=== PATIENT | female | born 1950 | race Caucasian/White ===

== ENCOUNTER → 2017-03-12 | Day surgery (SDC) | payer MEDICARE ==
[~2017-03-12] MED LIST: ALBUTEROL SULFATE 2.5 MG/3 ML NEBU. NEB ONE; ASPI-612 PO; ASPI-630 PO; ASPI1TAB58 PO; ATEN25TA PO; CALC200T3 PO; CALC667C6 PO; CHLO4TAB20 PO; EPINEPHrine 1 MG/ML VIAL IRR PRN; ESMOLOL 100 MG/10 ML VIAL. IV ONE; ESTR1TAB15 PO; FEXO180T16 PO; FLUT9.9S NS; GLYCOPYRROLATE 1 MG/5 ML VIAL. ONE; HYDROmorphone 2 MG/ML VIAL IV PRN; IBUP-1027 PO; IBUP100T8 PO; IV RINGERS,LACTATED 1000ML 1,000 ML IV SCH; LIDOCAINE 1% PF 2 ML VIAL. ID PRN; MEDR2.5T28 PO; MORPHINE SULFATE 2 MG/ML DISP.SYRIN. IV PRN; OMEP40CA5 PO; ONDANSETRON PF 4 MG/2 ML VIAL. IV PRN; PROCHLORPERAZINE 10 MG/2 ML VIAL. IV PRN; PROPOFOL 20 ML IV ONE; SUMA50TA4 PO; TRIA10.8 NS; [UNRECOGNIZED DRUG - CODE] PO; fentaNYL PF VIAL 100 MCG/2 ML VIAL IV PRN; phenylephrine
[2017-03-12 10:14] LABS: BASO # 0.1 x10^3/uL (0.0-0.2); BASO % 1 % (0-3); EOS % 1 % (0-3); HEMATOCRIT 43.4 % (36.0-47.0); HEMOGLOBIN 14.2 g/dL (12.0-15.5); LYMPH # 1.6 x10^3/uL (1.0-4.8); LYMPH % 18 % (24-48); MEAN CORPUSCULAR HEMOGLOBIN 31 pg (25-35); MEAN CORPUSCULAR HGB CONC 33 g/dL (31-37); MEAN CORPUSCULAR VOLUME 94 fL (79-100); MONO % 12 % (0-9); NEUT % 67 % (31-73); PLATELET COUNT 287 x10^3/uL (140-400)
[2017-03-12 10:24] LABS: INR 0.9 (0.8-1.1)
--- NOTE | 2017-03-12 11:47 | OP ---
DATE OF SURGERY: BRONCHOSCOPY NOTE INDICATION: Abnormal CT chest with interstitial infiltrates and persistent cough and weight loss, rule out Mycobacterium avium infection. Informed consent was obtained from the patient. She had a prior bronchoscopy as well. She agreed to proceed with bronchoscopy. All risks and benefits were explained. Propofol was used for sedation by anesthesia. Bronch was introduced through the right nostril. Upper airway was passed. There were moderate amount of thin secretions seen in the upper airway. Vocal cords were reached. They move equally with respiration. The trachea was entered. Some cheese white secretions seen in the distal trachea and also in the right upper lobe. Secretions were removed and bronchoalveolar lavage performed from the right upper lobe. No endobronchial lesion seen. The right middle lobe and right lower lobe was patent and no significant secretions seen. Mucosa appeared normal. Bronch was introduced into the left lung. All the subsegments of left upper lobe, lingula and left lower lobe were visualized. No endobronchial lesion seen. Mucosa appeared normal. There were some minimal secretions seen at the opening of the left lower lobe and also lingula. Bronchoalveolar lavage performed from the left lower lobe. IMPRESSION: 1. Minimal cheese white secretions seen in the distal trachea and the right upper lobe and also minimally in the left lingula and the opening of the left lower lobe. 2. Bronchoalveolar lavage performed from the right upper lobe and also from the left lower lobe. 3. No endobronchial lesion seen. 4. Mucosa appeared normal. 5. Follow the results of the bronchoscopy cultures. The patient tolerated the procedure well. JOY JOVEL MD DR: LANCE/veronica JOB#: [id number] / [id number]
[2017-03-12 11:49] VITALS: BP 131/65
--- NOTE | 2017-03-13 14:27 | PATHOLOGY ---
CYTOPATHOLOGY REPORT CLINICAL HISTORY: Persistent cough SPECIMEN(S) RECEIVED: A.Bronchoalveolar lavage, Right upper lobe B.Bronchoalveolar lavage, Left lower lobe FINAL DIAGNOSIS: A. Right upper lobe bronchoalveolar lavage, ThinPrep: - No malignant cells identified. - Bronchial epithelial cells, pulmonary macrophages, and predominantly acute inflammatory cells identified. B. Left lower lobe bronchoalveolar lavage, ThinPrep: - Non-diagnostic specimen. - Paucicellular specimen containing a few bronchial epithelial cells and inflammatory cells. (JPM:mgr; 03/13/2017) PATHOLOGIST: Leo Coyne M.D. REPORT ELECTRONICALLY SIGNED BY: Leo Coyne M.D. DATE/TIME: 03/13/2017 14:26 GROSS PATHOLOGY: A. Bronchoalveolar lavage, Right upper lobe: The specimen is submitted unfixed, labeled "Luis M Meza". Received by the Cytology Department is five mL of cloudy colorless fluid. One ThinPrep slide was prepared. B. Bronchoalveolar lavage, Left lower lobe: The specimen is submitted unfixed, labeled "MezaLuis M pappas A". Received by the Cytology Department is two mL of clear fluid. One ThinPrep slide was prepared. ([id number]) RADIOLOGY DIRECTOR(S): JUVENTINO Petty(ASCP), [facility] INITIAL CPT CODE(S): A; 10687 B; 66649 Professional services [place] [address] Technical services performed by [facility] at [address] [place] [address], [place] [address]. PATIENT: LUIS M MEZA /AGE: 4 1950 (Age: 66) SEX: F PATIENT #: [id number] ALT CASE #: SPECIMEN COLLECTION DATE: 03/12/2017 SPECIMEN RECEIVED DATE: 03/12/[address] [facility] [address] [place] [address], [address] [place] [address] PHONE: [phone] DIRECTOR: Tevin Ann M.D. * * * END OF REPORT * * *
== END | disposition home or self-care (01) ==
LOC: SURG 09:45
PROVIDERS: ATTEND Internal Medicine Critical Care Medicine
DX: J98.4 Other disorders of lung (principal); H40.9 Unspecified glaucoma; J45.909 Unspecified asthma, uncomplicated; Z90.49 Acquired absence of other specified parts of digestive tract; K21.9 Gastro-esophageal reflux disease without esophagitis; N39.0 Urinary tract infection, site not specified; M19.90 Unspecified osteoarthritis, unspecified site; F41.9 Anxiety disorder, unspecified; Z88.2 Allergy status to sulfonamides; Z91.02 Food additives allergy status; D69.6 Thrombocytopenia, unspecified
CPT/HCPCS: 31624; 36415; 85025; 85610; 87070; 87102; 87116; 87205; 88112; 94640; J2704; J3490; J7613; 31622

== ENCOUNTER → 2017-04-10 | Outpatient (CLI) | payer MEDICARE ==
[2017-04-10] MEDS: OXYMETAZOLINE 0.05% NASAL SPRAY 30ML BOTTLE. NS (22:30)
== END | disposition home or self-care (01) ==
LOC: SLPLAB 18:32
DX: G47.10 Hypersomnia, unspecified (principal)
CPT/HCPCS: 95810

== ENCOUNTER → 2017-04-29 | Outpatient (CLI) | payer MEDICARE ==
[2017-04-29] MEDS: ZOLPIDEM 5 MG TABLET. PO (21:15)
== END | disposition home or self-care (01) ==
LOC: RT 18:36
DX: G47.33 Obstructive sleep apnea (adult) (pediatric) (principal)
CPT/HCPCS: 95811

== ENCOUNTER 2017-05-20 09:40 | Inpatient (IN) | payer MEDICARE ==
[2017-05-20 10:56] LABS: HEMATOCRIT 40.7 % (36.0-47.0); HEMOGLOBIN 13.3 g/dL (12.0-15.5); MEAN CORPUSCULAR HEMOGLOBIN 30 pg (25-35); MEAN CORPUSCULAR HGB CONC 33 g/dL (31-37); MEAN CORPUSCULAR VOLUME 92 fL (79-100); PLATELET COUNT 277 x10^3/uL (140-400); RED BLOOD COUNT 4.43 x10^6/uL (3.50-5.40); RED CELL DISTRIBUTION WIDTH 14.2 % (11.5-14.5); WHITE BLOOD COUNT 7.7 x10^3/uL (4.0-11.0)
[2017-05-20 11:03] LABS: ANION GAP 6 (6-14); BLOOD UREA NITROGEN 20 mg/dL (7-20); CALCIUM 8.9 mg/dL (8.5-10.1); CARBON DIOXIDE 31 mmol/L (21-32); CHLORIDE 104 mmol/L (98-107); CREATININE 0.7 mg/dL (0.6-1.0); GFR 83.2; GLUCOSE 100 mg/dL (70-99); POTASSIUM 4.4 mmol/L (3.5-5.1); SODIUM 141 mmol/L (136-145)
[2017-05-20 11:05] LABS: PARTIAL THROMBOPLASTIN TIME 29 SEC (24-38); PROTHROMBIN TIME PATIENT 12.7 SEC (11.7-14.0)
[2017-05-20 11:15] LABS: TROPONINI < 0.017 ng/mL (0.000-0.055)
[2017-05-20 11:18] LABS: CKMB INDEX 1.3 % (0-4); CKMB MASS 1.6 ng/mL (0.0-3.6); CREATINE KINASE 123 U/L (26-192)
[2017-05-20] MEDS ORDERED: IV NORMAL SALINE 50ML 50 ML IV (12:45)
[2017-05-20] MEDS: ALTEPLASE 6 MG IV (12:57)
[2017-05-20] MEDS: ALTEPLASE IV (12:58)
[2017-05-20] MEDS ORDERED: ONDANSETRON PF 4 MG/2 ML VIAL. IV ×2 (13:00→13:15)
[2017-05-20] MEDS ORDERED: LABETALOL 20 MG/4 ML DISP.SYRIN. IV (13:00)
[2017-05-20] MEDS ORDERED: ACETAMINOPHEN 325 MG SUPP.RECT. PR (13:00)
[2017-05-20] MEDS ORDERED: CONTRAST GIVEN MC (13:15)
[2017-05-20] MEDS: IOHEXOL 300 MG/ML 100ML VIAL. IV (14:27)
[2017-05-20] MEDS ORDERED: CALCIUM CARBONATE 500 MG TAB.CHEW PO (17:00)
[2017-05-20] MEDS ORDERED: SODIUM CHL/ALOE VERA NASAL GEL 14.1GM TUBE. NS (17:15)
[2017-05-20 17:45] LABS: TROPONINI < 0.017 ng/mL (0.000-0.055)
[2017-05-20] MEDS: FLUTICASONE 50MCG/NASAL SPRAY 16GM BOTTLE. NS (18:40)
[2017-05-20] MEDS: ACETAMINOPHEN 325 MG TABLET. PO (18:40)
[2017-05-20] MEDS: METOPROLOL TART IMMED RELEASE 25 MG TABLET. PO (20:39)
[2017-05-20] MEDS: ATORVASTATIN CALCIUM 10 MG TABLET. PO (20:39)
[2017-05-21 00:15] LABS: MRSA BY PCR Negative (Negative)
[2017-05-21] MEDS: ACETAMINOPHEN 325 MG TABLET. PO ×2 (00:22→09:48)
[2017-05-21 01:30] LABS: ADD MAN DIFF? NO
[2017-05-21 01:37] LABS: BASO # 0.1 x10^3/uL (0.0-0.2); BASO % 1 % (0-3); EOS % 1 % (0-3); HEMATOCRIT 38.3 % (36.0-47.0); HEMOGLOBIN 12.8 g/dL (12.0-15.5); LYMPH # 1.6 x10^3/uL (1.0-4.8); LYMPH % 19 % (24-48); MEAN CORPUSCULAR HEMOGLOBIN 31 pg (25-35); MEAN CORPUSCULAR HGB CONC 34 g/dL (31-37); MEAN CORPUSCULAR VOLUME 92 fL (79-100); MONO # 0.8 x10^3/uL (0.0-1.1); MONO % 9 % (0-9); NEUT % 70 % (31-73); PLATELET COUNT 272 x10^3/uL (140-400); RED BLOOD COUNT 4.15 x10^6/uL (3.50-5.40); RED CELL DISTRIBUTION WIDTH 14.4 % (11.5-14.5); WHITE BLOOD COUNT 8.5 x10^3/uL (4.0-11.0)
[2017-05-21 01:53] LABS: ANION GAP 12 (6-14); BLOOD UREA NITROGEN 20 mg/dL (7-20); CARBON DIOXIDE 26 mmol/L (21-32); CHLORIDE 105 mmol/L (98-107); CHOLESTEROL 148 mg/dL (0-200); CHOLESTEROL/HDL RATIO 2.6; CREATININE 0.8 mg/dL (0.6-1.0); GFR 71.3; GLUCOSE 96 mg/dL (70-99); HDLC 57 mg/dL (40-60); LDLC 83 mg/dL (0-100); NON-HDL CHOLESTEROL 91 mg/dL (0-129); POTASSIUM 3.6 mmol/L (3.5-5.1); SODIUM 143 mmol/L (136-145); TRIGLYCERIDES 41 mg/dL (0-150); VLDLC 8 mg/dL (0-40)
[2017-05-21 02:01] LABS: TROPONINI < 0.017 ng/mL (0.000-0.055)
[2017-05-21] MEDS: PANTOPRAZOLE 40 MG TABLET.DR. PO (08:22)
[2017-05-21] MEDS: METOPROLOL TART IMMED RELEASE 25 MG TABLET. PO (09:00)
[2017-05-21] MEDS: CETIRIZINE HCL 10 MG TABLET. PO (09:13)
[2017-05-22] MEDS ORDERED: ASPIRIN 325 MG TABLET PO (08:00)
== END 2017-05-21 18:00 | disposition home or self-care (01) | DRG 62 ==
LOC: ER 09:40 → 1 WEST ICU 11:00
PROC: 3E03317 Introduction of Other Thrombolytic into Peripheral Vein, Percutaneous Approach (ICD-10-PCS; principal; 2017-05-20)
DX: I63.9 Cerebral infarction, unspecified (principal); I47.1 Supraventricular tachycardia; E78.00 Pure hypercholesterolemia, unspecified; E78.5 Hyperlipidemia, unspecified; G43.909 Migraine, unspecified, not intractable, without status migrainosus; G47.33 Obstructive sleep apnea (adult) (pediatric); H40.9 Unspecified glaucoma; I10 Essential (primary) hypertension; J45.909 Unspecified asthma, uncomplicated; K21.9 Gastro-esophageal reflux disease without esophagitis; K58.9 Irritable bowel syndrome, unspecified; Z82.49 Family history of ischemic heart disease and other diseases of the circulatory system; Z86.73 Personal history of transient ischemic attack (TIA), and cerebral infarction without residual deficits; F41.9 Anxiety disorder, unspecified; H26.9 Unspecified cataract; Z87.440 Personal history of urinary (tract) infections; Z87.01 Personal history of pneumonia (recurrent); Z90.49 Acquired absence of other specified parts of digestive tract; Z88.2 Allergy status to sulfonamides; Z88.8 Allergy status to other drugs, medicaments and biological substances; Z91.011 Allergy to milk products; M54.5 Low back pain; Z98.49 Cataract extraction status, unspecified eye; J32.9 Chronic sinusitis, unspecified
CPT/HCPCS: 36415; 37195; 70450; 70496; 70498; 70551; 80048; 80061; 82553; 84484; 85025; 85027; 85610; 85730; 87040; 87641; 92610-GN; 93005; 97161-GP; 97166-GO; 99291; 99291-25; C8929; J2997; Q9967

== ENCOUNTER → 2017-05-27 | Outpatient (CLI) | payer MEDICARE | END | disposition home or self-care (01) | LOC: LINQ 08:34 | DX: I47.1 Supraventricular tachycardia (principal); Z86.73 Personal history of transient ischemic attack (TIA), and cerebral infarction without residual deficits | CPT/HCPCS: 33282; C1764 ==

== ENCOUNTER → 2017-12-23 | Outpatient (CLI) | payer MEDICARE ==
[2017-05-21 16:00] VITALS: BP 139/60
[~2017-12-23] MED LIST changes: -ALBUTEROL SULFATE 2.5 MG/3 ML NEBU. NEB ONE; +ASPI325T8 PO; +ATOR10TA60 PO; -EPINEPHrine 1 MG/ML VIAL IRR PRN; -ESMOLOL 100 MG/10 ML VIAL. IV ONE; -GLYCOPYRROLATE 1 MG/5 ML VIAL. ONE; -HYDROmorphone 2 MG/ML VIAL IV PRN; -IV RINGERS,LACTATED 1000ML 1,000 ML IV SCH; -LIDOCAINE 1% PF 2 ML VIAL. ID PRN; -MORPHINE SULFATE 2 MG/ML DISP.SYRIN. IV PRN; -ONDANSETRON PF 4 MG/2 ML VIAL. IV PRN; -PROCHLORPERAZINE 10 MG/2 ML VIAL. IV PRN; -PROPOFOL 20 ML IV ONE; -fentaNYL PF VIAL 100 MCG/2 ML VIAL IV PRN
--- NOTE | 2017-12-24 11:06 | RAD ---
MR#: [id number] Date of Study: 12/23/2017 Ordering Physician: MANOLO OLSON, Referring Physician: MANOLO OLSON, Tech: Oral Villalba, EVANGELIST, RDMS, RVT, RDCS, RTR APPROVED REPORT Patient Location : OUT-PATIENT Indications venous insufficiency Findings Grayscale images of the bilateral saphenofemoral junctions do not reveal any obvious evidence of thro mbus. The right great saphenous vein measures 8.5 mm in the left great saphenous vein measures 9.5 mm and both veins do not show any evidence of reflux. The bilateral lesser saphenous veins do not show any evidence of reflux. Critical Notification Critical Value: No <Conclusion> Negative for reflux in the bilateral greater and lesser saphenous veins. Signed by : Manolo Olson, Electronically Approved : 12/24/2017 11:05:39
== END | disposition home or self-care (01) ==
LOC: US 14:26
PROVIDERS: ATTEND Internal Medicine Cardiovascular Disease
DX: I87.2 Venous insufficiency (chronic) (peripheral) (principal); I10 Essential (primary) hypertension; E78.5 Hyperlipidemia, unspecified; Z79.82 Long term (current) use of aspirin; Z82.49 Family history of ischemic heart disease and other diseases of the circulatory system; F41.9 Anxiety disorder, unspecified; M19.90 Unspecified osteoarthritis, unspecified site; K21.9 Gastro-esophageal reflux disease without esophagitis; G43.909 Migraine, unspecified, not intractable, without status migrainosus; Z87.440 Personal history of urinary (tract) infections; Z87.01 Personal history of pneumonia (recurrent); Z86.73 Personal history of transient ischemic attack (TIA), and cerebral infarction without residual deficits; Z82.41 Family history of sudden cardiac death; Z90.89 Acquired absence of other organs; Z90.49 Acquired absence of other specified parts of digestive tract; Z88.2 Allergy status to sulfonamides; Z88.8 Allergy status to other drugs, medicaments and biological substances; Z91.011 Allergy to milk products
CPT/HCPCS: 93970

== ENCOUNTER 2018-04-18 08:54 | Emergency (ER) | payer MEDICARE ==
[~2018-04-18] VITALS: Ht 167.6 cm; Wt 68.9 kg
[2018-04-18] MEDS ORDERED: LIDOCAINE 1% Multi-Dose 20 ML VIAL. IJ ONE (10:30)
--- NOTE | 2018-04-18 11:13 | RAD ---
CT HEAD AND MAXILLOFACIAL WO Indication: FALL HIT HEAD ON CONCRETE, RIGHT SIDE EYE SWELLING, PRIOR SENT Exposure: One or more of the following individualized dose reduction techniques were utilized for this examination: 1. Automated exposure control 2. Adjustment of the mA and/or kV according to patient size 3. Use of iterative reconstruction technique. Comparison: None are available. Contrast: None FINDINGS: Posterior fossa is unremarkable. No evidence of acute intracranial hemorrhage or abnormal extra-axial fluid collection. No evidence of mass effect or midline shift. Ventricles and sulci are symmetric in size and configuration. Mild white matter low-density, nonspecific but commonly due to small vessel ischemic disease in a patient of this age. Visualized orbits are unremarkable. Visualized paranasal sinuses and mastoids are clear. No acute calvarial abnormality. Swelling and density in the right frontal and periorbital region compatible with a hematoma. Impression: Right frontal and periorbital scalp hematoma. No evidence of acute intracranial hemorrhage or mass effect. Chronic findings as detailed above. FACIAL BONES: Nasal bone: Intact Orbital floors: Intact Bones: No acute fracture is identified. Visualized sinuses: Clear. Globes/Orbits: Unremarkable. Mandible/Maxilla: Unremarkable. Soft tissue: Right orbital and frontal scalp hematoma again identified. IMPRESSION: 1. Right frontal and periorbital scalp hematoma. No evidence of acute fracture. Electronically signed by: Saji Macedo MD (04/18/2018 11:08 AM) [facility] [place]
[2018-04-18] MEDS ORDERED: HYDROcodone/APAP 5/325MG 1 TAB TABLET PO ONE (11:15)
--- NOTE | 2018-04-18 11:42 | RAD ---
HAND RIGHT 3V History: FALL. 5TH DIGIT LACERATION TO RIGHT HAND. Comparison: None are available No evidence of an acute fracture. No dislocation. No evidence of metallic foreign body at the fifth finger. IMPRESSION: No acute fracture or dislocation. Electronically signed by: Saji Macedo MD (04/18/2018 11:38 AM) [facility]
[2018-04-18 11:44] VITALS: BP 155/71
[2018-04-18] MEDS ORDERED: HYDR-3164 PO (12:26)
--- NOTE | 2018-04-18 12:26 | PHYS DOC ---
Past Medical History Past Medical History: Anxiety, Asthma, GERD, Glaucoma, High Cholesterol, Pneumonia, TIA, UTI Additional Past Medical Histor: HEADACHE LE NUMBNESS CARDIAC ABLATION SVT LUNG INFILTRATE DDD BACK PAIN Past Surgical History: Cholecystectomy, Tonsillectomy Additional Past Surgical Histo: CATARACTS Alcohol Use: None Drug Use: None Adult General Chief Complaint Chief Complaint: MECHANICAL FALL [facility] HPI Patient is a 67 year old female who presents with a laceration at the base of the fifth digit, and abrasion to the right side of her face as well as a hematoma. The patient fell this evening. She denies loss of consciousness or other injury. She was able to control the bleeding to the laceration. She presented directly to the emergency department. The patient is up-to-date on her tetanus status. Review of Systems Review of Systems Constitutional: Denies fever or chills [] Eyes: Denies change in visual acuity, redness, or eye pain [] HENT: See history of present illness Respiratory: Denies cough or shortness of breath [] Cardiovascular: No additional information not addressed in HPI [] GI: Denies abdominal pain, nausea, vomiting, bloody stools or diarrhea [] : Denies dysuria or hematuria [] Musculoskeletal: Denies back pain or joint pain [] Integument: See history of present illness Neurologic: Denies headache, focal weakness or sensory changes [] Endocrine: Denies polyuria or polydipsia [] All other systems were reviewed and found to be within normal limits, except as documented in this note. Current Medications Current Medications Current Medications Medications (Trade) Dose Ordered Sig/Lilia Start Time Stop Time Status Last Admin Dose Admin Acetaminophen/ Hydrocodone Bitart (Lortab 5/325) 1 tab 1X ONCE 04/18/18 11:15 04/18/18 11:16 DC 04/18/18 11:23 1 TAB Lidocaine HCl (Lidocaine 1% 20ml Vial) 20 ml 1X ONCE 04/18/18 10:30 04/18/18 10:31 DC 04/18/18 11:23 20 ML Allergies Allergies Allergies Coded Allergies Type Severity Reaction Last Updated Verified [place] And Derivatives Allergy Severe Anaphylaxis 03/12/17 Yes milk Allergy Severe Anaphylaxis 03/12/17 Yes Sulfa (Sulfonamide Antibiotics) Allergy Intermediate Nausea 03/12/17 Yes adhesive Allergy Intermediate BANDAID - RASH 03/12/17 Yes chocolate flavor Allergy Intermediate 03/12/17 Yes corn Allergy Intermediate Nausea 03/12/17 Yes Physical Exam Physical Exam Constitutional: Well developed, well nourished, no acute distress, non-toxic appearance. [] HENT: Normocephalic, hematoma to the right forehead as well as an abrasion to the right cheek, no gross deformity noted orbits, bilateral external ears normal , oropharynx moist, no oral exudates, nose normal. [] Eyes: PERRLA, EOMI, conjunctiva normal, no discharge. [] Neck: Normal range of motion, no tenderness, supple, no stridor. [] Cardiovascular:Heart rate regular rhythm, no murmur [] Lungs & Thorax: Bilateral breath sounds clear to auscultation [] Abdomen: Bowel sounds normal, soft, no tenderness, no masses, no pulsatile masses. [] Skin: 2 cm laceration to the base of the right fifth digit that is gaping Back: No tenderness, no CVA tenderness. [] Extremities: No tenderness, no cyanosis, no clubbing, ROM intact, no edema. [] Neurologic: Alert and oriented X 3, normal motor function, normal sensory function, no focal deficits noted. [] Psychologic: Affect normal, judgement normal, mood normal. [] Current Patient Data Vital Signs Vital Signs Date Time Temp Pulse Resp B/P (MAP) Pulse Ox O2 Delivery O2 Flow Rate FiO2 04/18/18 11:44 70 96 04/18/18 10:13 97.9 18 161/91 (114) 97.9 EKG EKG [] Radiology/Procedures Radiology/Procedures [] PATIENT: LUIS M OCHOA ACCOUNT: [id number] : 1950 LOCATION: ER AGE: 67 SEX: F EXAM STATUS: PRE ER ORD. PHYSICIAN: CHRISSY RUSSELL APRN REASON: fall today PROCEDURE: CT HEAD AND MAXILLOFACIAL WO CT HEAD AND MAXILLOFACIAL WO Indication: FALL HIT HEAD ON CONCRETE, RIGHT SIDE EYE SWELLING, PRIOR SENT Exposure: One or more of the following individualized dose reduction techniques were utilized for this examination: 1. Automated exposure control 2. Adjustment of the mA and/or kV according to patient size 3. Use of iterative reconstruction technique. Comparison: None are available. Contrast: None FINDINGS: Posterior fossa is unremarkable. No evidence of acute intracranial hemorrhage or abnormal extra-axial fluid collection. No evidence of mass effect or midline shift. Ventricles and sulci are symmetric in size and configuration. Mild white matter low-density, nonspecific but commonly due to small vessel ischemic disease in a patient of this age. Visualized orbits are unremarkable. Visualized paranasal sinuses and mastoids are clear. No acute calvarial abnormality. Swelling and density in the right frontal and periorbital region compatible with a hematoma. Impression: Right frontal and periorbital scalp hematoma. No evidence of acute intracranial hemorrhage or mass effect. Chronic findings as detailed above. FACIAL BONES: Nasal bone: Intact Orbital floors: Intact Bones: No acute fracture is identified. Visualized sinuses: Clear. Globes/Orbits: Unremarkable. Mandible/Maxilla: Unremarkable. Soft tissue: Right orbital and frontal scalp hematoma again identified. IMPRESSION: 1. Right frontal and periorbital scalp hematoma. No evidence of acute fracture. Electronically signed by: Saji Macedo MD (04/18/2018 11:08 AM) [facility] DICTATED and SIGNED BY: SAJI MACEDO MD DATE: 04/18/18 110 PATIENT: LUIS M OCHOA ACCOUNT: [id number] : 1950 LOCATION: ER AGE: 67 SEX: F EXAM STATUS: PRE ER ORD. PHYSICIAN: CHRISSY RUSSELL APRN REASON: fall with deep laceration to 5th digit PROCEDURE: HAND RIGHT 3V HAND RIGHT 3V History: FALL. 5TH DIGIT LACERATION TO RIGHT HAND. Comparison: None are available No evidence of an acute fracture. No dislocation. No evidence of metallic foreign body at the fifth finger. IMPRESSION: No acute fracture or dislocation. Electronically signed by: Saji Macedo MD (04/18/2018 11:38 AM) [facility] DICTATED and SIGNED BY: SAJI MACEDO MD DATE: 04/18/18 1133 Impressions: Laceration Repair by me: Anesthesia: 1% lidocaine locally Location: Base of right fifth digit Tendon/Joint/Nerves: No injury Foreign body: None detected after copious irrigation and exploration Technique: Simple Interrupted Sutures Complexity: No subcutaneous sutures/mucosal repair/edge excision Post Closure Length: 2 cm Patient's bleeding was easily controlled in the department and there is no indication of anemia. No evidence of compartment syndrome, neurologic injury, vascular injury, open joint, tendon laceration, or foreign body. Patient is appropriate for outpatient follow up. 48 hour wound check. Scar minimization instructions given. Course & Med Decision Making Course & Med Decision Making Pertinent Labs and Imaging studies reviewed. (See chart for details) [] Dragon Disclaimer Dragon Disclaimer This electronic medical record was generated, in whole or in part, using a voice recognition dictation system. Departure Departure Impression: Primary Impression: Hematoma Additional Impressions: Laceration Fall Disposition: HOME, SELF-CARE Condition: STABLE Referrals: DALTON MEREDITH Jr, MD (PCP) Patient Instructions: Hematoma, Laceration Care, Adult Additional Instructions: Keep the wounds clean and dry. Use ice packs to help reduce swelling. Follow-up with your primary care provider in 7-10 days for suture removal. If worsening return immediately to the emergency department. You were given a small amount of pain medication in the emergency department. Do not drive or operate heavy machinery while taking this medication. Scripts Hydrocodone/Apap 5-325 (NORCO 5-325 TABLET) 1 Each Tablet 1 TAB PO PRN Q6HRS PRN for PAIN, #10 TAB 0 Refills Prov: CHRISSY RUSSELL APRN 04/18/18 Problem Qualifiers CHRISSY RUSSELL APRN Apr 18, 2018 12:26
== END 2018-04-18 12:46 | disposition home or self-care (01) ==
LOC: ER 08:54
DX: S61.411A Laceration without foreign body of right hand, initial encounter (principal); S00.83XA Contusion of other part of head, initial encounter; J45.909 Unspecified asthma, uncomplicated; E78.00 Pure hypercholesterolemia, unspecified; K21.9 Gastro-esophageal reflux disease without esophagitis; Z86.73 Personal history of transient ischemic attack (TIA), and cerebral infarction without residual deficits; Z91.011 Allergy to milk products; Z91.018 Allergy to other foods; Z88.2 Allergy status to sulfonamides; Z88.8 Allergy status to other drugs, medicaments and biological substances; W01.198A Fall on same level from slipping, tripping and stumbling with subsequent striking against other object, initial encounter; Y93.89 Activity, other specified; Y92.89 Other specified places as the place of occurrence of the external cause; Y99.8 Other external cause status
CPT/HCPCS: 12001; 12002; 70450; 70486; 73130; 99284-25

== ENCOUNTER → 2018-08-28 | Outpatient (CLI) | payer MEDICARE ==
[~2018-08-28] MED LIST changes: +HYDR-3164 PO
--- NOTE | 2018-08-28 17:11 | CARD ---
MR#: [id number] Date of Study: 08/28/2018 Ordering Physician: LE OLSON, Referring Physician: LE OLSON, Tech: Barby Haynes APPROVED REPORT EXAM: Two-dimensional and M-mode echocardiogram with Doppler and color Doppler. Other Information Quality : GoodHR: 66bpm INDICATION Arrhythmia Premature atrial contractions RISK FACTORS Hyperlipidemia seasonal Asthma 2D DIMENSIONS RVDd2.6 (2.9-3.5cm)Left Atrium(2D)3.2 (1.6-4.0cm) IVSd1.1 (0.7-1.1cm)Aortic Root(2D)3.0 (2.0-3.7cm) LVDd4.5 (3.9-5.9cm)LVOT Diameter2.0 (1.8-2.4cm) PWd1.0 (0.7-1.1cm)LVDs2.9 (2.5-4.0cm) FS (%) 35.2 %SV60.4 ml LVEF(%)64.6 (>50%) Aortic Valve AoV Peak Gato.137.5cm/sAoV VTI35.5cm AO Peak GR.7.6mmHgLVOT Peak Gato.118.5cm/s AO Mean GR.5mmHgAVA (VMAX)2.65cm2 Mitral Valve MV E Uvgjaptw58.0cm/sMV E Peak Gr.89mmHg MV DECEL [id number] A Yotpxgoh43.0cm/s E/A Ratio1.0 Pulmonary Valve PV Peak Pnxuplcg54.1cm/s Tricuspid Valve TR P. Ujljbwos955jo/sRAP SFXSUIGC5ywOh TR Peak Gr.94jaNvVAQV32jrTx Pulmonary Vein S1 Wjvgrzor71.0cm/sD2 Oesnifyg48.5cm/s PVa niacuvka518qjmf LEFT VENTRICLE The left ventricle is normal size. There is borderline concentric left ventricular hypertrophy. The l eft ventricular systolic function is normal. The Ejection Fraction is 55-60%. There is normal LV segm ental wall motion. The left ventricular diastolic function and filling is normal for age. RIGHT VENTRICLE The right ventricle is normal size. There is normal right ventricular wall thickness. The right ventr icular systolic function is normal. ATRIA The left atrium size is normal. The right atrium size is normal. The atrial septum is aneurysmal. AORTIC VALVE The aortic valve is calcified but opens well. Doppler and Color Flow revealed no significant aortic r egurgitation. There is no significant aortic valvular stenosis. MITRAL VALVE The mitral valve is normal in structure and function. There is no evidence of mitral valve prolapse. There is no mitral valve stenosis. Doppler and Color-flow revealed trace mitral regurgitation. TRICUSPID VALVE The tricuspid valve is normal in structure and function. Doppler and Color Flow revealed trace tricus pid regurgitation with an estimated PAP of 26 mmHg. There is no tricuspid valve stenosis. PULMONIC VALVE The pulmonary valve is normal in structure and function. Doppler and Color Flow revealed trace pulmon ic valvular regurgitation. GREAT VESSELS The aortic root is normal in size. The IVC is normal in size and collapses >50% with inspiration. PERICARDIAL EFFUSION There is no evidence of significant pericardial effusion. Critical Notification Critical Value: No <Conclusion> The left ventricular systolic function is normal. The Ejection Fraction is 55-60%. There is normal LV segmental wall motion. Trace mitral regurgitation. Trace tricuspid regurgitation with an estimated PAP of 26 mmHg. There is no evidence of significant pericardial effusion. Signed by : Raphael Hernandez, Electronically Approved : 08/28/2018 17:10:56
== END | disposition home or self-care (01) ==
LOC: ECHO 09:51
PROVIDERS: ATTEND Internal Medicine Cardiovascular Disease
DX: I35.8 Other nonrheumatic aortic valve disorders (principal); I11.9 Hypertensive heart disease without heart failure; E78.5 Hyperlipidemia, unspecified; J45.909 Unspecified asthma, uncomplicated; I49.1 Atrial premature depolarization; I49.9 Cardiac arrhythmia, unspecified
CPT/HCPCS: 93306

== ENCOUNTER 2019-05-23 20:30 | Emergency (ER) | payer MEDICARE ==
[~2019-05-23] VITALS: Ht 175.3 cm; Wt 75.9 kg
[~2019-05-23 20:30] MED LIST changes: +OMEP40CA45 PO; -OMEP40CA5 PO
--- NOTE | 2019-05-23 21:13 | RAD ---
Exam: CT head INDICATION: Fall TECHNIQUE: Sequential axial images through the head were obtained without the administration of IV contrast. Comparisons: 04/18/2018 FINDINGS: No focal parenchymal lesion or hemorrhage is identified. There is no midline shift or sulcal effacement. No acute vascular territory infarction is identified. Bush-white distinction is preserved. The ventricular system is within normal limits without compression hydrocephalus. The basal cisterns are well maintained. Extra cranial soft tissue scalp hematoma overlying the left superior orbital ridge. The visualized portions of the paranasal sinuses and mastoid air cells are well-pneumatized. No acute fractures. IMPRESSION: Extra cranial soft tissue scalp hematoma overlying the left superior orbital ridge without underlying osseous or intracranial abnormality. Exposure: One or more of the following in the visualized dose reduction techniques were utilized for this examination: 1. Automated exposure control 2. Adjustment of the MA and/or KV according to patient size Use of iterative of reconstructive technique Electronically signed by: Yann Ware MD (05/23/2019 9:10 PM) [id number]
--- NOTE | 2019-05-23 21:16 | PHYS DOC ---
Past Medical History Past Medical History: Anxiety, Asthma, GERD, Glaucoma, High Cholesterol, Pneumonia, TIA, UTI Additional Past Medical Histor: HEADACHE LE NUMBNESS CARDIAC ABLATION SVT LUNG INFILTRATE DDD BACK PAIN Past Surgical History: Cholecystectomy, Tonsillectomy Additional Past Surgical Histo: CATARACTS Smoking Status: Never Smoker Alcohol Use: None Drug Use: None Adult General Chief Complaint Chief Complaint: MECHANICAL FALL HPI HPI 71-year-old female presents to the emergency department after a fall. Patient states she was walking on the stairs and missed the last step and fell hitting her head on the ground. Denies any loss of consciousness, she is on no blood thinning medications. Patient has a hematoma to the left eyebrow, she complains of left humerus pain. Patient denies chest pain, SOB, nausea, vomiting. She denies having any dizziness or concerns for syncope prior to incident. She denies headache or neck pain on exam. Movements make her arm pain worse Review of Systems Review of Systems Constitutional: Denies fever or chills [] Respiratory: Denies cough or shortness of breath [] Cardiovascular: No additional information not addressed in HPI [] GI: Denies abdominal pain, nausea, vomiting, bloody stools or diarrhea [] : Denies dysuria or hematuria [] Musculoskeletal: left upper ext pain Neurologic: + headache, no focal weakness or sensory changes [] All other systems were reviewed and found to be within normal limits, except as documented in this note. Allergies Allergies Allergies Coded Allergies Type Severity Reaction Last Updated Verified [place] And Derivatives Allergy Severe Anaphylaxis 03/12/17 Yes milk Allergy Severe Anaphylaxis 03/12/17 Yes Sulfa (Sulfonamide Antibiotics) Allergy Intermediate Nausea 03/12/17 Yes adhesive Allergy Intermediate BANDAID - RASH 03/12/17 Yes chocolate flavor Allergy Intermediate 03/12/17 Yes corn Allergy Intermediate Nausea 03/12/17 Yes Physical Exam Physical Exam Constitutional: Well developed, well nourished, no acute distress, non-toxic appearance. [] HENT: Normocephalic, hematoma appreciated to left eyebrow, bilateral external ears normal, oropharynx moist, no oral exudates, nose normal. [] Eyes: PERRLA, EOMI, conjunctiva normal, no discharge. [] Neck: Normal range of motion, no tenderness, supple, no stridor. [] Cardiovascular:Heart rate regular rhythm, no murmur [] Lungs & Thorax: Bilateral breath sounds clear to auscultation [] Abdomen: Bowel sounds normal, soft, no tenderness, no masses, no pulsatile masses. [] Skin: Warm, dry, no erythema, no rash. [] Back: No tenderness, no CVA tenderness. [] Extremities: TTP humerus, no significant deformity noted, no edema. [] Neurologic: Alert and oriented X 3, no focal deficits noted. [] Psychologic: Affect normal, judgement normal, mood normal. [] Current Patient Data Vital Signs Vital Signs Date Time Temp Pulse Resp B/P (MAP) Pulse Ox O2 Delivery O2 Flow Rate FiO2 05/23/19 20:36 98.7 89 18 176/96 (122) 99 Room Air 98.7 EKG EKG [] Radiology/Procedures Radiology/Procedures CT head without acute process, soft tissue swelling Xray left arm reveals humeral head fracture[] Course & Med Decision Making Course & Med Decision Making Pertinent Labs and Imaging studies reviewed. (See chart for details) [] 71-year-old female presents to the emergency department after a fall. Patient states she was walking on the stairs and missed the last step and fell hitting her head on the ground. Denies any loss of consciousness, she is on no blood t hinning medications. Patient has a hematoma to the left eyebrow, she complains of left humerus pain. Patient denies chest pain, SOB, nausea, vomiting. She denies having any dizziness or concerns for syncope prior to incident. She denies headache or neck pain on exam. Movements make her arm pain worse Reviewed imaging with patient Plan sling to left arm and follow up with [facility]o [place] rx provided Return precautions discussed Dragon Disclaimer Dragon Disclaimer This electronic medical record was generated, in whole or in part, using a voice recognition dictation system. Departure Departure Impression: Primary Impression: Fall Additional Impressions: Head contusion Humeral head fracture Disposition: 01 HOME, SELF-CARE Condition: STABLE Referrals: JERRI GALO MD (PCP) MANI REYNOLDS MD Patient Instructions: Contusion, Vtlq-uw-Txvu, Humerus Fracture, Treated with Immobilization, [id number]-vb-Kcvc Additional Instructions: Xray reviewed with humeral head fracture CT head without acute bleeding or fracture Recommend follow up with Ortho - number provided Dr. Avilez [place] rx provided upon discharge for pain Scripts Hydrocodone/Apap 5-325 (NORCO 5-325 TABLET) 1 Each Tablet 1 TAB PO PRN Q6HRS PRN for PAIN, #10 TAB 0 Refills Prov: KYLE ARCHER MD 05/23/19 Problem Qualifiers Primary Impression: Fall Encounter type: initial encounter Qualified Codes: W19.XXXA - Unspecified fall, initial encounter Additional Impressions: Head contusion Encounter type: initial encounter Contusion of head detail: eyelid Laterality: left Qualified Codes: S00.12XA - Contusion of left eyelid and periocular area, initial encounter Humeral head fracture Encounter type: initial encounter Fracture type: closed Laterality: left Qualified Codes: S42.292A - Other displaced fracture of upper end of left humerus, initial encounter for closed fracture KYLE ARCHER MD May 23, 2019 21:16
[2019-05-23] MEDS ORDERED: HYDR-3164 PO (21:54)
[2019-05-23 21:57] VITALS: BP 163/73
[2019-05-23] MEDS: HYDROcodone/APAP 5/325MG 1 TAB TABLET PO ONE (22:04)
--- NOTE | 2019-05-23 23:10 | RAD ---
HUMERUS LEFT Clinical Indication: Fall, pain. Comparison: None. Findings: There is acute traumatic fracture of the surgical neck of the proximal humerus. Distal fracture fragment is slightly medially displaced. There is acute fracture of the greater tuberosity. The glenohumeral articulation is maintained. Mild AC arthropathy. There is age-indeterminate nondisplaced fracture of the left lateral sixth rib. The left upper lung is clear. No obvious deformity of the elbow joint. IMPRESSION: Acute traumatic fracture of the surgical neck of the humerus. Electronically signed by: Ari Ndiaye MD (05/23/2019 11:07 PM) [id number]
== END 2019-05-23 22:10 | disposition home or self-care (01) ==
LOC: ER 20:30
DX: S42.212A Unspecified displaced fracture of surgical neck of left humerus, initial encounter for closed fracture (principal); S00.12XA Contusion of left eyelid and periocular area, initial encounter; R51 Headache; J45.909 Unspecified asthma, uncomplicated; K21.9 Gastro-esophageal reflux disease without esophagitis; E78.00 Pure hypercholesterolemia, unspecified; Z86.73 Personal history of transient ischemic attack (TIA), and cerebral infarction without residual deficits; W18.09XA Striking against other object with subsequent fall, initial encounter; Z88.2 Allergy status to sulfonamides; Z91.018 Allergy to other foods; Z91.011 Allergy to milk products; Z88.8 Allergy status to other drugs, medicaments and biological substances; Y93.01 Activity, walking, marching and hiking; Y92.89 Other specified places as the place of occurrence of the external cause; Y99.8 Other external cause status
CPT/HCPCS: 70450; 73060; 99284